=== PATIENT | female | born 1950 | race Caucasian/White ===

== ENCOUNTER 2020-05-29 22:31 | Emergency (ER) | payer MEDICARE, SELFPAY ==
--- NOTE | ~2020-05-29 | XR_ITS ---
EXAMINATION: XR chest 2V DATE: 05/29/2020 23:27 INDICATION: Hypertension. Chest pain. TECHNIQUE: PA and lateral views of the chest were obtained. COMPARISON: Chest radiograph dated 02/24/2006 FINDINGS: The lungs remain clear with no focal airspace opacities, pulmonary edema, pleural effusion or pneumot horax. Cardiomegaly. Tortuous thoracic aorta. Mild to moderate thoracic spondylosis. IMPRESSION: 1. Cardiomegaly. No other acute cardiopulmonary disease. Reviewed, dictated and finalized at location A.
[2020-05-29 22:35] VITALS: BP 201/113; PULSE 70; RESP 19; TEMP 36.2; O2SAT 98
[2020-05-29 23:03] VITALS: BP 184/106; PULSE 73; RESP 15; O2SAT 96
[2020-05-29 23:24] LABS: Basophils Percent Auto 0.4 % (0.2-1.2); Eosinophils Absolute Auto 0.4 K/mm3 (0-0.3); Eosinophils Percent Auto 4.5 % (0-4.4); Hemoglobin 14.5 g/dL (12.0-15.0); Immature Granulocyte Absolute 0.02 K/mm3 (0.00-0.031); Immature Granulocyte Percent A 0.2 % (0-0.5); Lymphocytes Absolute Auto 2.61 K/mm3 (0.9-3.2); Lymphocytes Percent Auto 31.8 % (18.3-44.2); Mean Corpuscular Hemoglobin 30.7 pg (26-34); Mean Corpuscular Volume 93.2 fl (80-100); Mean Platelet Volume 10.3 fl (7.4-10.4); Monocytes Absolute Auto 0.8 K/mm3 (0.1-0.6); Monocytes Percent Auto 9.1 % (2.6-8.5); Neutrophils Absolute Auto 4.4 K/mm3 (1.3-6.7); Platelet Count Result 166 k/mm3 (150-375); Red Blood Count 4.72 M/mm3 (4.2-5.4); Red Cell Distribution Width 12.8 % (11.5-14.5); White Blood Count 8.2 K/mm3 (4.5-10.0)
[2020-05-29 23:35] LABS: INR 2.5; Partial Thromboplastin Time 40.7 SECONDS (22.3-36.8); Prothrombin Time 26.1 Seconds (11.1-14.7)
[2020-05-29 23:37] LABS: Anion Gap 6 mmol/L (8-16); Blood Urea Nitrogen 25 mg/dL (7-17); Calcium 9.8 mg/dL (8.4-10.2); Carbon Dioxide 30 mmol/L (22-30); Chloride 105 mmol/L (98-107); Estimated CRCL calculation 34 ml/min; Estimated Glomerular Filt Rate 37; Glucose 89 mg/dL (65-105); Potassium 3.8 mmol/L (3.4-5.0); Sodium 141 mmol/L (137-145)
[2020-05-29 23:49] LABS: Troponin I < 0.012 ng/mL (0.000-0.034)
[2020-05-30 00:30] VITALS: BP 201/97; PULSE 71; RESP 16; O2SAT 99
[2020-05-30] MEDS: hydrALAZINE HCL 20 MG/ML VIAL 10 MG IV PUSH (00:41)
[2020-05-30 01:00] VITALS: BP 150/81; PULSE 75; RESP 14; O2SAT 100
--- NOTE | 2020-05-30 01:02 | ED.RECABL ---
HPI - Recheck/Abnormal Lab/Rx General Chief Complaint: Recheck/Abnormal Lab/Rx Stated Complaint: high bp Time Seen by Provider: 05/29/20 22:33 History of Present Illness HPI narrative: Patient is a 61-year-old female who presents ER with elevated blood pressures. She has been adjusting her blood pressure medications with the guidance of her primary care physician over the last couple weeks. Her blood pressures typically been running 120s to 150s. Tonight they started running to the low 200s which is unusual for her. She is having no chest pain or shortness of breath related to this blood pressure tonight and she is having no headache related to this blood pressure tonight. She does report that she has had some mild central chest discomfort for the last 2 weeks has been persistent that is not aggravated or alleviated by anything that she can note. Furthermore she is also been having some maxillary sinus pressure related to congestion. She is not taking decongestants. No cough. Related Data Home Medications Medication Instructions Recorded Confirmed aspirin 81 mg tablet,delayed 81 mg PO DAILY 10/05/19 01/10/20 release cholecalciferol (vitamin D3) 50 2,000 unit PO DAILY 10/05/19 01/10/20 mcg (2,000 unit) tablet Allergies Allergy/AdvReac Type Severity Reaction Status Date / Time No Known Allergies Allergy Mild Verified 05/29/20 22:56 Review of Systems Review of Systems: All systems reviewed & are unremarkable except as noted in HPI and below Constitutional: Constitutional: Denies chills, Denies fever(s) and Denies weakness ENT: Reports nasal congestion and Denies sore throat Cardiovascular: Cardiovascular: Reports chest pain, Denies rapid heart rate and Denies radiating jaw, neck or arm pain Respiratory: Respiratory: Denies cough and Denies dyspnea Neurologic: Reports headache(s), Denies focal weakness and Denies numbness [facility] Past Medical History Medical History (Updated 05/30/20 @ 01:06 by Julián Echols MD) Afib Arterial embolism of upper extremity Atherosclerosis of arteries of extremities bilateral legs Diabetes HLD (hyperlipidemia) HTN (hypertension) Surgical History Surgical History (Updated 10/04/19 @ 17:25 by Araseli Molina) History of angioplasty rt leg Family History Family History (System 10/04/19 @ 17:25 by Araseli Molina) Mother Patient's mother is , Onset Age: 72 Family history of lung cancer Father Patient's father is , Onset Age: 57 Acute myocardial infarction Grandparent Cerebrovascular accident Social History Social History (Updated 05/15/20 @ 15:54 by Salbador Dowell [facility]) Smoking status: Never smoker Alcohol intake: current Gender identity (if verbalized by the patient): Female Exam Narrative: Exam Narrative: GENERAL: Well-appearing, well-nourished, and in no acute distress. HEAD: Normocephalic, atraumatic. CHEST: Clear to auscultation. No respiratory distress. HEART: Irregular regular rate and rhythm. Normal peripheral pulses. ABDOMEN: Soft, nontender, nondistended. EXTREMITIES: Normal range of motion. No edema. SKIN: Warm, dry, no rash. NEURO: Alert and oriented x3. PSYCH: Normal mood and affect. Course Course Emergency Course: Blood pressure improved significantly with IV hydralazine. We will give a small prescription for home to take if blood pressures greater than 185 mmHg systolic. Recommend she contact PCP for close follow-up tomorrow. Vital Signs Vital signs: Vital Signs Temperature 97.2 F L 05/29/20 22:35 Pulse Rate 70 05/29/20 22:35 Respiratory Rate 19 05/29/20 22:35 Blood Pressure 201/113 H 05/29/20 22:35 Pulse Oximetry 98 05/29/20 22:35 Temperature 97.2 F L 05/29/20 22:35 Pulse Rate 71 05/30/20 00:30 Respiratory Rate 16 05/30/20 00:30 Blood Pressure 201/97 H 05/30/20 00:30 Pulse Oximetry 99 05/30/20 00:30 MDM - Recheck/Abnormal Lab/Rx Lab D
== END 2020-05-30 01:15 | disposition home or self-care (01) ==
PROVIDERS: Emergency Provider Emergency Medicine; PCP Family Medicine
DX: I10 Essential (primary) hypertension (principal); Z79.82 Long term (current) use of aspirin; I48.91 Unspecified atrial fibrillation; E11.9 Type 2 diabetes mellitus without complications; E78.5 Hyperlipidemia, unspecified; Z98.62 Peripheral vascular angioplasty status; I70.203 Unspecified atherosclerosis of native arteries of extremities, bilateral legs
CPT/HCPCS: 36415; 71046; 80048; 84484; 85025; 85610; 85730; 96374; 99284; J0360

== ENCOUNTER 2020-06-27 01:25 | Outpatient (CLI) | payer MEDICARE, SELFPAY ==
[2020-06-27 18:18] LABS: SARS-CoV-2 RNA PCR Negative
== END 2020-06-27 01:26 | disposition home or self-care (01) ==
LOC: ANHCOVIDDT 01:25
PROVIDERS: PCP Family Medicine; Visit Provider Internal Medicine Gastroenterology
DX: Z01.812 Encounter for preprocedural laboratory examination (principal); Z20.828 Contact with and (suspected) exposure to other viral communicable diseases
CPT/HCPCS: 87635; C9803; U0003

== ENCOUNTER 2020-06-29 01:37 | Day surgery (SDC) | payer MEDICARE, SELFPAY ==
[2020-06-21 10:12] VITALS: BMI 26.6
[2020-06-29 08:48] VITALS: BP 138/93; PULSE 71; RESP 18; TEMP 36.4; O2SAT 98; BMI 27.1
[2020-06-29 09:08] LABS: Glucose Point of Care 71 (65-105)
[2020-06-29] MEDS: LACTATED RINGERS 1,000 ML 150 ML IV CONT (09:08)
--- NOTE | 2020-06-29 09:22 | WPDGICN ---
Assessment and Plan Assessment and plan (1) History of colon polyps: Code(s): Z86.010 - Personal history of colonic polyps Status: Acute Assessment and Plan: Patient had an adenoma of the colon removed from the colon 2013. Plans for follow-up colonoscopy today. (2) Afib: Code(s): I48.91 - Unspecified atrial fibrillation Status: Acute Assessment and Plan: Patient has a history of atrial fibrillation on Xarelto anticoagulation. This is now held in preparation for the colonoscopy for 3 days. (3) Arterial embolism of upper extremity: Code(s): I74.2 - Embolism and thrombosis of arteries of the upper extremities Status: Acute Assessment and Plan: Patient had thrombectomy of arterial embolus in the left upper extremity. This happened in August 2019. Patient appears to have recovered well at this point. GI Consult Note Consult date/time: 06/29/20 09:22 HPI: Michelle Vivar is a 70 year old female Seen in evaluation at the request of Dr. Cowan. patient presents for screening colonoscopy. Patient has a history of adenomatous colon polyp removed from the colon in 2013. Her current weight appetite bowel movement is normal. She denies abdominal pain. She has had no blood in her stools. Past medical history is significant for atrial fibrillation for which she is on Xarelto. This will be held 3 days prior to the colonoscopy. Additionally patient had a blood clot in her left arm period which required thrombectomy. She has done well since that time. No residual damage evident. Family history is noncontributory. No reported history of colon or rectal disease. [facility] Past Medical History Medical History (Updated 06/29/20 @ 09:25 by Davon Rivero MD) Afib Arterial embolism of upper extremity Atherosclerosis of arteries of extremities bilateral legs Diabetes HLD (hyperlipidemia) HTN (hypertension) Surgical History Surgical History (Updated 10/04/19 @ 17:25 by Araseli Molina) History of angioplasty rt leg Family History Family History (System 10/04/19 @ 17:25 by Araseli Molina) Mother Patient's mother is , Onset Age: 72 Family history of lung cancer Father Patient's father is , Onset Age: 57 Acute myocardial infarction Grandparent Cerebrovascular accident Social History Social History (Updated 05/15/20 @ 15:54 by Salbador Dowell [facility]) Smoking status: Never smoker Alcohol intake: current Alcohol use details: socially Substance use type: does not use Living arrangements: with family Gender identity (if verbalized by the patient): Female Spiritual care concerns: No Meds Home Medications and Allergies Home Medications Medication Instructions Recorded Confirmed Type aspirin 81 mg tablet,delayed 81 mg PO DAILY 10/05/19 06/21/20 History release cholecalciferol (vitamin D3) 50 2,000 unit PO DAILY 10/05/19 06/21/20 History mcg (2,000 unit) tablet rivaroxaban 20 mg tablet 20 mg PO DAILY #30 tablet 10/05/19 06/21/20 Rx irbesartan 300 1 tablet PO DAILY #90 tablet 11/07/19 06/21/20 Rx mg-hydrochlorothiazide 12.5 mg tablet atorvastatin 10 mg tablet 10 mg PO DAILY #90 tablet 04/16/20 06/21/20 Rx metformin 500 mg tablet,extended 500 mg PO DAILY #90 tablet 05/15/20 06/21/20 Rx release 24 hr nebivolol 10 mg tablet 10 mg PO DAILY #90 tablet 05/22/20 06/21/20 Rx hydralazine 10 mg PO TID PRN #10 tablet 05/30/20 06/21/20 Rx Allergies Allergy/AdvReac Type Severity Reaction Status Date / Time No Known Allergies Allergy Mild Verified 06/29/20 08:43 Vital Signs Vital Signs - 24 hr 06/29/20 08:48 Temperature 97.5 F L Pulse Rate 71 Respiratory Rate 18 Blood Pressure 138/93 H Pulse Oximetry 98 Exam Narrative: Exam Narrative: Physical exam reveals patient to be alert. Vital signs stable. HEENT exam unremarkable. Lungs are clear to auscultation a
--- NOTE | 2020-06-29 09:57 | WPDANESEPPF ---
Anes - Initial Pre Proc Eval Procedure: Operation Date: 06/29/20 09:30 Proposed Procedures p Screening Colonoscopy - Davon Rivero MD Date/Time: 06/29/20 09:57 Surgeon: Davon Rivero MD Pre Op Diagnosis: Hx of Colon Polyps Patient Data Age: 70 Gender: F Height: 5 ft 7 in Weight: 78.4 kg Last Vital Signs Temp 36.4 C L 06/29/20 08:48 Pulse 71 06/29/20 08:48 Resp 18 06/29/20 08:48 BP 138/93 H 06/29/20 08:48 Pulse Ox 98 06/29/20 08:48 Allergies Allergy/AdvReac Type Severity Reaction Status Date / Time No Known Allergies Allergy Mild Verified 06/29/20 08:43 Home Medications Medication Instructions Recorded Confirmed Type aspirin 81 mg tablet,delayed 81 mg PO DAILY 10/05/19 06/21/20 History release cholecalciferol (vitamin D3) 50 2,000 unit PO DAILY 10/05/19 06/21/20 History mcg (2,000 unit) tablet rivaroxaban 20 mg tablet 20 mg PO DAILY #30 tablet 10/05/19 06/21/20 Rx irbesartan 300 1 tablet PO DAILY #90 tablet 11/07/19 06/21/20 Rx mg-hydrochlorothiazide 12.5 mg tablet atorvastatin 10 mg tablet 10 mg PO DAILY #90 tablet 04/16/20 06/21/20 Rx metformin 500 mg tablet,extended 500 mg PO DAILY #90 tablet 05/15/20 06/21/20 Rx release 24 hr nebivolol 10 mg tablet 10 mg PO DAILY #90 tablet 05/22/20 06/21/20 Rx hydralazine 10 mg PO TID PRN #10 tablet 05/30/20 06/21/20 Rx Laboratory Tests 06/29/20 09:05 POC Capillary Glucose 71 mg/dl mg/dl (65-105) Patient hx anesthesia problems: none Family hx anesthesia problems: none PMFSH Past Medical History Medical History (Updated 06/29/20 @ 09:25 by Davon Rivero MD) Afib Arterial embolism of upper extremity Atherosclerosis of arteries of extremities bilateral legs Diabetes HLD (hyperlipidemia) HTN (hypertension) Surgical History Surgical History (Updated 10/04/19 @ 17:25 by Araseli Molina) History of angioplasty rt leg Family History Family History Mother Patient's mother is , Onset Age: 72 Family history of lung cancer Father Patient's father is , Onset Age: 57 Acute myocardial infarction Grandparent Cerebrovascular accident Social History Social History Smoking status: Never smoker Alcohol intake: current Alcohol use details: socially Substance use type: does not use Living arrangements: with family Gender identity (if verbalized by the patient): Female Spiritual care concerns: No Anes - Eval Final PreProcedure Day of Procedure 06/29/20 09:57 Patient weight: overweight Heart: irregular rhythm Lungs: clear to auscultation Airway: Mallampati scale class II Neurological: alert and oriented Last oral intake: >/= 8 hours ASA classification: III Emergent: no Anesthetic plan: proceed Anesthesia type and monitoring: general GIVS and standard monitoring Informed Consent: The patient's anesthetic plan and its attendant risks and benefits were discussed with the patient/family/POA. Questions were solicited and answers provided to the satisfaction of the patient/family/POA.
[2020-06-29 10:22] VITALS: BP 122/62; PULSE 65; RESP 24; O2SAT 99
[2020-06-29 10:32] VITALS: BP 129/72; PULSE 65; RESP 16; O2SAT 99
== END 2020-06-29 11:15 | disposition home or self-care (01) ==
PROVIDERS: PCP Family Medicine; Visit Provider Internal Medicine Gastroenterology
PROC: 0DJD8ZZ Inspection of Lower Intestinal Tract, Via Natural or Artificial Opening Endoscopic (ICD-10-PCS; CPT 45378; principal; 2020-06-29 09:30)
DX: Z12.11 Encounter for screening for malignant neoplasm of colon (principal); K63.5 Polyp of colon; K64.8 Other hemorrhoids; I48.91 Unspecified atrial fibrillation; I74.2 Embolism and thrombosis of arteries of the upper extremities; I70.203 Unspecified atherosclerosis of native arteries of extremities, bilateral legs; E11.9 Type 2 diabetes mellitus without complications; I10 Essential (primary) hypertension; Z79.01 Long term (current) use of anticoagulants; Z79.84 Long term (current) use of oral hypoglycemic drugs
CPT/HCPCS: 45385; 88305; J2704; J7120

== ENCOUNTER 2020-07-08 08:55 | Outpatient (CLI) | payer MEDICARE, SELFPAY ==
--- NOTE | ~2020-07-08 | US_ITS ---
EXAMINATION: US retroperitoneal duplex ltd DATE: 07/08/2020 10:26 INDICATION: Hypertension. TECHNIQUE: Multiple grayscale, color Doppler, and pulsed Doppler images of the kidneys and renal ana cristina gerri were obtained. COMPARISON: None. FINDINGS: There is a 3.2 cm fusiform aneurysm of infrarenal aorta. The aorta peak systolic velocity is 75 cm/s. The right renal artery peak systolic velocity is 105 cm/s in the proximal segment, 154 cm/s in the m id segment, and 74 cm/s in the distal segment. The left renal artery peak systolic velocity is 56 cm/ s in the proximal segment, 80 cm/s in the mid segment, and 74 cm/s in the distal segment. IMPRESSION: 1. No Doppler evidence of renal artery stenosis. 2. 3.2 cm fusiform aneurysm of infrarenal aorta. Reviewed, dictated and finalized at location A. OGRAPHER
== END 2020-07-08 08:56 | disposition home or self-care (01) ==
PROVIDERS: PCP Family Medicine; Visit Provider Family Medicine
DX: I71.8 Aortic aneurysm of unspecified site, ruptured (principal); I10 Essential (primary) hypertension
CPT/HCPCS: 93976

== ENCOUNTER 2020-10-04 13:26 | Outpatient (CLI) | payer MEDICARE, SELFPAY ==
--- NOTE | ~2020-10-04 | XR_ITS ---
XR foot LT min 3V DATE: 10/04/2020 13:41 INDICATION: Stepped on glass with lateral side of heel 3 weeks ago TECHNIQUE: 4 views COMPARISON: None FINDINGS: Prominent plantar and posterior calcaneal enthesopathy. No radiopaque foreign body is evident. There is hallux valgus and bunion deformity. There is osteoarthritic change at the first metatarsopha langeal joint. There is a wire suture of the proximal phalanx of the first digit. 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 RMAN
== END 2020-10-04 13:27 | disposition home or self-care (01) ==
LOC: ANHIMG 13:30
PROVIDERS: PCP Family Medicine; Visit Provider Family Medicine
DX: M20.12 Hallux valgus (acquired), left foot (principal); M77.32 Calcaneal spur, left foot
CPT/HCPCS: 73630

== ENCOUNTER → 2021-03-18 14:54 | Outpatient (CLI) | payer MEDICARE, SELFPAY ==
--- NOTE | ~2021-03-18 | US_ITS ---
EXAMINATION: US pelvic complete w TV DATE: 03/18/2021 15:34 INDICATION: Pelvic and perineal pain TECHNIQUE: Multiple transabdominal and endovaginal sonographic images of the pelvis were obtained. COMPARISON: 05/29/2006 FINDINGS: The uterus measures 6.3 x 4.3 x 4.1 cm. The endometrial complex measures 9 mm. There appear to be small intramural fibroids of the uterus measuring up to 1.1 cm. The right ovary measures 2.7 x 1.3 x 3.0 cm. The left ovary measures 2.6 x 1.7 x 1.6 cm. There is normal vascular flow in the ovari es. There is no free fluid in the pelvis. IMPRESSION: 1. Endometrial thickening which may be due to hyperplasia, polyp, or malignancy. Endometrial sampling is recommended. Reviewed, dictated and finalized at location B. IMPRESSION: 1. Endometrial thickening which may be due to hyperplasia, polyp, or malignancy . Endometrial sampling is recommended.
== END ==
PROVIDERS: PCP Family Medicine; Visit Provider Student in an Organized Health Care Education/Training Program
DX: R10.2 Pelvic and perineal pain (principal)
CPT/HCPCS: 76830; 76856

== ENCOUNTER → 2021-05-14 13:39 | Outpatient (CLI) | payer MEDICARE, SELFPAY ==
--- NOTE | ~2021-05-14 | DEXA_ITS ---
Bone Density Report Name: Michelle Vivar Age: 70 Sex: Female Ethnicity: White Date of : 1950 Indication: postmenopausal; screening for osteoporosis; Referring Provider: Zakia Fermin Study: Bone densitometry was performed. Exam Date: May 14, 2021 Accession number: [id number] Bone Density: Region BMD T-score Z-score Classification AP Spine (L1-L4) 1.267 2.0 4.1 Normal Femoral Neck (Left) 0.952 0.9 2.7 Normal Total Hip (Left) 1.066 1.0 2.5 Normal Femoral Neck (Right) 0.966 1.1 2.8 Normal Total Hip (Right) 1.100 1.3 2.8 Normal Total Hip Mean 1.083 1.2 2.7 Normal World Health Organization criteria for BMD impression classify patients as: Normal (T-score at or above -1.0), Osteopenia (T-score between -1.0 and -2.5), or Osteoporosis (T-score at or below -2.5). 10-year Fracture Risk: FRAX not reported because: All T-scores for Spine Total, Hip Total, Femoral Neck at or above -1.0 Clinical Information Provided by Patient: Has used the following medications: Vitamin D Patient maximum height was 67.0 Menopause Age: 54 No regular weight bearing exercise Drinks caffeinated beverages Onset of menses at age 13 Number of children 0 Impression: The patient has normal bone mass. Discussion: LOW RISK OF FRACTURE; BONE DENSITY IS WELL ABOVE THE MINIMUM DESIRABLE LEVEL AND ABOVE AVERAGE FOR AGE AND SEX AT ALL SKELETAL SITES TESTED. This person's bone density is above expected limits for age and sex. This is rarely clinically significant, but should be pursued if there are significant musculoskeletal complaints. The patient should follow a healthful lifestyle (good nutrition with adequate calcium and vitamin D, and appropriate weight-bearing exercise). Follow-Up: Consider repeating this study in 5 years or sooner if there is some new clinical indication. Reported by: RAJANI on 05/14/2021 3:25:00 PM. Reviewed, dictated and finalized at location AGodfrey VERA
== END ==
PROVIDERS: PCP Family Medicine; Visit Provider Student in an Organized Health Care Education/Training Program
DX: Z78.0 Asymptomatic menopausal state (principal)
CPT/HCPCS: 77080

== ENCOUNTER → 2021-08-28 08:55 | Outpatient (CLI) | payer MEDICARE, SELFPAY ==
[2021-08-28 21:06] LABS: SARS-CoV-2 RNA PCR Positive
== END ==
PROVIDERS: PCP Family Medicine; Visit Provider Family Medicine
DX: U07.1 COVID-19 (principal)
CPT/HCPCS: C9803; U0003; U0005

== ENCOUNTER 2021-09-12 09:05 | Outpatient (CLI) | payer MEDICARE, SELFPAY ==
--- NOTE | ~2021-09-12 | US_ITS ---
EXAMINATION: US aorta EXAM DATE: 09/12/2021 10:02 INDICATION: I71.4 - Abdominal aortic aneurysm, without rupture AAA without rupture. Patient states wa s seen on prior CT at outside institution. TECHNIQUE: Multiple grayscale and Doppler images of the abdominal aorta were obtained (by a technolog ist who performed the scan) and subsequently reviewed. There is no prior study for comparison. FINDINGS: The abdominal aorta measures up to 2.6 cm proximally, 3.4 cm mid aspect, 2.8 cm distally. The right a nd left common iliac arteries are normal in caliber. There is scattered aortic atherosclerosis noted. IMPRESSION: Abdominal aortic ectasia up to 3.4 cm mid aspect. Reviewed, dictated and finalized at location A. UP TECHNICIAN
== END 2021-09-12 09:06 | disposition home or self-care (01) ==
LOC: ANHIMG 09:08
PROVIDERS: PCP Family Medicine; Visit Provider Nurse Practitioner Family
DX: I74.8 Embolism and thrombosis of other arteries (principal)
CPT/HCPCS: 76775

== ENCOUNTER → 2022-03-15 11:14 | Outpatient (CLI) | payer MEDICARE, SELFPAY ==
--- NOTE | ~2022-03-15 | US_ITS ---
EXAMINATION: US renal BI DATE: 03/15/2022 11:35 INDICATION: N18.32 - Chronic kidney disease, stage 3b TECHNIQUE: Multiple grayscale and Doppler ultrasound images of the kidneys were obtained. COMPARISON: None available FINDINGS: The right kidney measures 9.7 x 3.4 x 3.6 cm. The left kidney measures 11.0 x 4.7 x 4.3 cm. The kidne ys demonstrate normal parenchymal echogenicity. Mild cortical thinning, with bilateral cortical scarr ing No sonographic evidence of nephrolithiasis. No mass. No hydronephrosis. The bladder is decompress ed. IMPRESSION: 1. Mild cortical scarring and atrophy. Reviewed, dictated and finalized at location K.
== END ==
PROVIDERS: PCP Family Medicine; Visit Provider Family Medicine
DX: R31.29 Other microscopic hematuria (principal); N18.32 Chronic kidney disease, stage 3b; N26.1 Atrophy of kidney (terminal)
CPT/HCPCS: 76775

== ENCOUNTER → 2023-01-16 08:48 | Outpatient (CLI) | payer MEDICARE, SELFPAY ==
--- NOTE | ~2023-01-16 | US_ITS ---
EXAMINATION: US aorta DATE: 01/16/2023 09:35 INDICATION: Abdominal aortic aneurysm. TECHNIQUE: Grayscale, color Doppler, and pulsed Doppler images of the aorta and common iliac arteries were obtained. COMPARISON: Ultrasound aorta 09/12/21 FINDINGS: The aorta demonstrates a 3.9 cm fusiform infrarenal aneurysm. The right common iliac artery measures 1.0 cm. The left common iliac artery measures 1.0 cm. IMPRESSION: 1. 3.9 cm fusiform aneurysm of infrarenal aorta, which measured 3.1 cm on 09/12/2021. Reviewed, dictated and finalized at location A. IMPRESSION: 1. 3.9 cm fusiform aneurysm of infrarenal aorta, which measured 3.1 cm on 2021.
== END ==
PROVIDERS: PCP Family Medicine; Visit Provider Family Medicine
DX: I71.43 Infrarenal abdominal aortic aneurysm, without rupture (principal)
CPT/HCPCS: 76775

== ENCOUNTER 2024-05-25 07:44 | Outpatient (CLI) | payer MEDICARE, SELFPAY ==
--- NOTE | ~2024-05-25 | US_ITS ---
EXAMINATION: US aorta DATE: 05/25/2024 08:36 INDICATION: Abdominal aortic aneurysm without rupture TECHNIQUE: Grayscale, color Doppler, and pulsed Doppler images of the aorta and common iliac arteries were obtained. COMPARISON: None. FINDINGS: The proximal aorta measures 2.6r cm AP. The mid aorta measures 3.6 cm. The distal aorta measures 1.7 cm. The right common iliac artery measures 1.2 cm. The left common iliac artery measures 1.2 cm. IMPRESSION: 1. Fusiform infrarenal abdominal aortic aneurysm measuring up to 3.6 cm in maximal diameter. Reviewed, dictated and finalized at location A. IMPRESSION: 1. Fusiform infrarenal abdominal aortic aneurysm measuring up to 3.6 cm in maxi mal diameter.
== END 2024-05-25 07:45 | disposition home or self-care (01) ==
PROVIDERS: PCP Family Medicine; Visit Provider Family Medicine
DX: I71.43 Infrarenal abdominal aortic aneurysm, without rupture (principal)
CPT/HCPCS: 76775